=== PATIENT | female | born 1955 | race Caucasian/White ===

== ENCOUNTER 2020-08-20 14:10 | Emergency (ER) | payer MEDICARE, SELFPAY ==
--- NOTE | ~2020-08-20 | CT_ITS ---
EXAMINATION: CT ABDOMEN AND PELVIS WITH CONTRAST CLINICAL INFORMATION: diffuse abd pain, worse epigastrium, hx lap justin COMPARISON: None. TECHNIQUE: Multidetector volumetric imaging was performed from the superior aspect of the liver through the pubic symphysis following administration of 85 cc of Omnipaque intravenous contrast Sagittal and coronal reformatted images were obtained on the technologist workstation.. This CT examination was performed using dose optimization techniques as appropriate, variously including the following: *Automated exposure control *Adjustment of mA and/or kV according to patient size (this includes techniques or standardized protocols for targeted exams where dose is matched to indication/reason for exam; i.e. extremities or head) *Use of iterative reconstruction technique DLP: 411 mGy-cm FINDINGS: LUNG BASES: Bibasilar dependent atelectasis LIVER, GALLBLADDER, AND BILIARY TREE: There is a heterogeneous mass in segment 4 the liver with associated capsular retraction. This measures approximate 5.7 x 3.1 x 5.8 cm in size. Difficult to define further on this study and further evaluation this hepatic lesion would be needed. Gallbladder surgically absent PANCREAS: Unremarkable. SPLEEN: Unremarkable. ADRENAL GLANDS: Unremarkable. KIDNEYS AND URETERS: Right lower pole renal cyst. Otherwise the kidneys are normal in size, shape, and attenuation. No hydronephrosis, hydroureter, or calculi seen. No perinephric stranding. BLADDER: Unremarkable. GASTROINTESTINAL TRACT: Colon is decompressed. This limits evaluation for subtle colonic wall thickening but I do not appreciate any pericolonic inflammatory changes. Interestingly, there are 2 metallic foreign bodies seen in the right lower quadrant. These appear to be located in the proximal and distal aspect of the appendix which measures up to 1 cm in maximal diameter without significant periappendiceal inflammatory change at this time previously ingested foreign bodies contained within the appendix likely. ABDOMINAL WALL: No significant hernia is appreciated. LYMPHOVASCULAR STRUCTURES: Mild vascular calcification within the aorta iliac system. No bulky adenopathy PELVIC VISCERA: Presumably surgically absent OSSEOUS STRUCTURES: Unremarkable. CT/CT abdomen pelvis w con IMPRESSION: There is an ill-defined lesion which appears to be mostly in segment 4 but likely crossing into segment 8 of the liver measuring up to 5.8 cm in maximal diameter. There is a suggestion of some subtle capsular retraction associated with this lesion. Etiology is uncertain and further evaluation will be needed. 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 Further evaluation with dedicated liver MRI would be recommended. 2 small metallic foreign bodies are seen in the right lower quadrant and these appear to be contained within the appendix. No obvious periappendiceal inflammatory changes This critical result was discussed with Dr. Janet Chavez at 08/20/2020 8:13 PM and it was ascertained that the content and urgency of the report was understood at the time of direct communication.
[2020-08-20 14:16] VITALS: BP 183/97; PULSE 87; RESP 18; TEMP 36.1; O2SAT 100; BMI 22.8
[2020-08-20 14:34] LABS: MANUAL DIFF FLAG NO
[2020-08-20 14:35] LABS: Basophils Percent Auto 0.2 % (0-2); Eosinophils Absolute Auto 0.1 X10*3/uL (0.0-0.4); Eosinophils Percent Auto 0.5 % (0-4); Hematocrit 43.7 % (37-47); Hemoglobin 14.2 g/dl (12.0-16.0); Imm Gran Abs Auto 0.07 X10*3/uL (0.00-0.03); Imm Gran Pct Auto 0.5 % (0.0-0.4); Lymphocytes Absolute Auto 1.3 X10*3/uL (1.2-4.9); Lymphocytes Percent Auto 8.5 % (20-40); Mean Corpuscular HGB Conc 32.5 g/dl (31.0-35.0); Mean Corpuscular Hemoglobin 28.9 pg (27.0-33.0); Mean Platelet Volume 11.6 fL (9.4-12.3); Monocytes Absolute Auto 0.6 X10*3/uL (0.1-1.2); Monocytes Percent Auto 3.9 % (2-11); Neutrophils Absolute Auto 13.4 X10*3/uL (2.0-8.3); Neutrophils Percent Auto 86.4 % (45-73); Platelet Count 213 X10*3/uL (160-400); Red Blood Count 4.91 X10*6/uL (4.20-5.50); Red Cell Distribution Width 12.1 % (11.0-16.0); White Blood Count 15.5 X10*3/uL (4.8-10.8)
[2020-08-20 15:02] LABS: Alanine Aminotransferase 26 U/L (0-31); Albumin Level 4.5 g/dL (3.5-5.0); Alkaline Phosphatase 106 U/L (39-117); Anion Gap 11 (12-20); Aspartate Amino Transferase 35 U/L (5-31); Bilirubin Direct 0.2 mg/dL (0.0-0.5); Bilirubin Total 0.4 mg/dL (0.0-1.0); Blood Urea Nitrogen 17 mg/dL (9-16); Carbon Dioxide 31 mmol/L (22-29); Chloride 102 mmol/L (96-108); Creatinine Clr Calc Pharmacy 54.8; Estimated Glomerular Filt Rate > 60; Glucose Random 118 mg/dL (60-115); Lipase 35 U/L (8-78); Potassium 4.4 mmol/L (3.3-5.1); Sodium 140 mmol/L (135-145); Total Protein 7.5 g/dL (6.5-8.0)
[2020-08-20 17:16] VITALS: BP 146/77; PULSE 79; RESP 22; TEMP 37.2; O2SAT 100
--- NOTE | 2020-08-20 17:24 | ED.ABDPAIN ---
HPI - Abdominal Pain General Chief Complaint: Abdominal Pain Stated Complaint: abd pain Time Seen by Provider: 08/20/20 17:03 Source: patient Mode of arrival: ambulatory Limitations: no limitations History of Present Illness HPI narrative: Patient comes to emergency room complaining of diffuse abdominal pain, worse in the epigastric area. Patient states she drank orange juice this morning, then started having intense epigastric pain. Patient states that she has vomited 4 times since this morning, no diarrhea, no fever or chills. The pain has been constant, diffuse, gradually getting worse. Patient states that a few years ago she had an endoscopy and was told that she has a hiatal hernia, patient also has history cholecystectomy. MD elicited complaint: abdominal pain Related Data Previous Rx's Medication Instructions Recorded ondansetron HCl [Zofran] 4 mg PO Q6H PRN #14 tab 08/20/20 tramadol 50 mg PO TID PRN #14 tab 08/20/20 Allergies Allergy/AdvReac Type Severity Reaction Status Date / Time No Known Allergies Allergy Verified 08/20/20 14:20 Review of Systems Review of Systems Constitutional : No Weight loss, No Fever, No Chills, No Night Sweats, No Fatigue, No Malaise ENT/Mouth : No Hearing loss, No Ear Pain, No Nasal Congestion, No Sinus Pain, No Hoarseness, No sore throat, No Rhinorrhea, No Swallowing Difficulty Eyes: No Eye Pain, No Swelling, No Redness, No Foreign Body, No Discharge, No Vision Changes Cardiovascular : No Chest Pain, No SOB, No Dyspnea on Exertion, No Orthopnea, No Edema, No Palpitations Respiratory : No Cough, No Sputum, No Wheezing, No Smoke Exposure, No Dyspnea Gastrointestinal : Complaining of nausea and vomiting, No Diarrhea, No Constipation, complaining of diffuse abdominal pain, worse in the epigastric area, No Hematochezia, No Melena Genitourinary : no irregular bleeding, No Dysuria, No Urinary Frequency, No Hematuria, No Urinary Incontinence, No Urgency, No Flank Pain, No Urinary Flow Changes, No Hesitancy Musculoskeletal : No joint pain, No Myalgias, No Joint Swelling Skin : No Skin Lesions, No rash Neuro : No Weakness, No Numbness, No Paresthesias, No Loss of Consciousness, No Dizziness, No Headache Psych : No Anxiety/Panic, No Depression, No SI/HI/AH/VH, No Social Issues, Heme/Lymph: No Bruising, No Bleeding,No Lymphadenopathy Endocrine : No Polyuria, No Polydipsia, No Temperature Intolerance Physical Exam Vital Signs: Vital Signs: Last Vital Signs Temp 98.8 F 08/20/20 20:00 Pulse 82 08/20/20 20:00 Resp 16 08/20/20 20:00 BP 151/82 H 08/20/20 20:00 Pulse Ox 99 08/20/20 20:00 Body Mass Index 22.8 Appearance: Alert. Oriented X3. Patient looks uncomfortable Eyes: Pupils equal, round and reactive to light. ENT: Pharynx normal. Neck: Normal inspection. Neck supple. No lymph nodes noted. No crepitus CVS: Normal heart rate and rhythm. Pulses normal. Normal S1 and S2 Respiratory: No respiratory distress. Breath sounds normal. No Wheezing. No rales Abdomen: Soft , diffuse tenderness but seems to be more painful at the epigastric area No rigidity. No distention. Skin: Skin warm and dry. Normal skin color. Normal skin turgor. Extremities: No lower extremity edema. No lower extremity edema. No Lacerations. No Rash Neuro: Oriented X 3. No motor deficit. No sensory deficit. Moving all extermities. No slurred speech. Course Course Course Narrative: Patient's white blood cell count is 15.5. We do not have any previous labs to compare. I discussed the CT scan with the patient, patient states that she knows that she has hepatic hemangioma and has a follow-up appointment coming up in the next 2 weeks. Patient states she is visiting for [place] and is scheduled to return home in 3 days. I also discussed with the patient that there was is an incidental finding, patient has foreign body in the appendix which is not causing any pathology at this moment MDM - Abdominal Pain Lab Data Result diagrams: 08/20/20 14:29 08/20/20 14:29 Labs: Lab Results 08/20/20 08/20/20 Range/Units 14:29 14:29 WBC 15.5 H (4.8-10.8) X10*3/uL RBC 4.91 (4.20-5.50) X10*6/uL Hgb 14.2 (12.0-16.0) g/dl Hct 43.7 (37-47) % MCV 89.0 (80-98) fL MCH 28.9 (27.0-33.0) pg MCHC 32.5 (31.0-35.0) g/dl RDW 12.1 (11.0-16.0) % Plt Count 213 (160-400) X10*3/uL MPV 11.6 (9.4-12.3) fL Immature Gran % (Auto) 0.5 H (0.0-0.4) % Neut % (Auto) 86.4 H (45-73) % Lymph % (Auto) 8.5 L (20-40) % [place] % (Auto) 3.9 (2-11) % Eos % (Auto) 0.5 (0-4) % Baso % (Auto) 0.2 (0-2) % Lymph # (Auto) 1.3 (1.2-4.9) X10*3/uL [place] # (Auto) 0.6 (0.1-1.2) X10*3/uL Eos # (Auto) 0.1 (0.0-0.4) X10*3/uL Baso # (Auto) 0.0 (0.0-0.2) X10*3/uL Abs Immat Gran (auto) 0.07 H (0.00-0.03) X10*3/uL Absolute Neuts (auto) 13.4 H (2.0-8.3) X10*3/uL Absolute Nucleated RBC 0.000 (0.0-0.012) X10*3/uL Nucleated RBC % (auto) 0.0 (0.0-0.2) /100WBC Sodium 140 (135-145) mmol/L Potassium 4.4 (3.3-5.1) mmol/L Chloride 102 (96-108) mmol/L Carbon Dioxide 31 H (22-29) mmol/L Anion Gap 11 L (12-20) BUN 17 H (9-16) mg/dL Creatinine 0.83 (0.5-1.4) mg/dL Estim Creat Clear Calc 54.8 Estimated GFR > 60 Random Glucose 118 H (60-115) mg/dL Calcium 10.0 (8.4-10.2) mg/dL Total Bilirubin 0.4 (0.0-1.0) mg/dL Direct Bilirubin 0.2 (0.0-0.5) mg/dL AST 35 H (5-31) U/L ALT 26 (0-31) U/L Alkaline Phosphatase 106 (39-117) U/L Total Protein 7.5 (6.5-8.0) g/dL Albumin 4.5 (3.5-5.0) g/dL Lipase 35 (8-78) U/L Imaging Data CT abdomen and pelvis: Radiologist's impression: FINDINGS: LUNG BASES: Bibasilar dependent atelectasis LIVER, GALLBLADDER, AND BILIARY TREE: There is a heterogeneous mass in segment 4 the liver with associated capsular retraction. This measures approximate 5.7 x 3.1 x 5.8 cm in size. Difficult to define further on this study and further evaluation this hepatic lesion would be needed. Gallbladder surgically absent PANCREAS: Unremarkable. SPLEEN: Unremarkable. ADRENAL GLANDS: Unremarkable. KIDNEYS AND URETERS: Right lower pole renal cyst. Otherwise the kidneys are normal in size, shape, and attenuation. No hydronephrosis, hydroureter, or calculi seen. No perinephric stranding. BLADDER: Unremarkable. GASTROINTESTINAL TRACT: Colon is decompressed. This limits evaluation for subtle colonic wall thickening but I do not appreciate any pericolonic inflammatory changes. Interestingly, there are 2 metallic foreign bodies seen in the right lower quadrant. These appear to be located in the proximal and distal aspect of the appendix which measures up to 1 cm in maximal diameter without significant periappendiceal inflammatory change at this time previously ingested foreign bodies contained within the appendix likely. ABDOMINAL WALL: No significant hernia is appreciated. LYMPHOVASCULAR STRUCTURES: Mild vascular calcification within the aorta iliac system. No bulky adenopathy PELVIC VISCERA: Presumably surgically absent OSSEOUS STRUCTURES: Unremarkable. CT/CT abdomen pelvis w con IMPRESSION: There is an ill-defined lesion which appears to be mostly in segment 4 but likely crossing into segment 8 of the liver measuring up to 5.8 cm in maximal diameter. There is a suggestion of some subtle capsular retraction associated with this lesion. Etiology is uncertain and further evaluation will be needed. 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 Further evaluation with dedicated liver MRI would be recommended. 2 small metallic foreign bodies are seen in the right lower quadrant and these appear to be contained within the appendix. No obvious periappendiceal inflammatory changes Discharge Plan Discharge Clinical Impression: Abdominal pain Qualifiers: Abdominal location: epigastric Qualified Code(s): R10.13 - Epigastric pain Patient Disposition: Home, Self-Care Instructions: Abdominal Pain (ED) Additional Instructions: Please follow-up with your primary care physician tomorrow. If you have any worsening or new symptoms, please return to the emergency room or call 911 Prescriptions: New ondansetron HCl [Zofran] 4 mg tablet 4 mg PO Q6H PRN (Reason: nausea and vomiting) Qty: 14 RF: 0 tramadol 50 mg tablet 50 mg PO TID PRN (Reason: pain) Qty: 14 RF: 0 PMFSH Past Medical History Medical History Cholecystectomy planned Cholecystitis Fibromyalgia Gastritis HLD (hyperlipidemia) HTN (hypertension) Social History Social History Alcohol intake: never Smoking Status: Never smoker Use of substances other than those prescribed or required for medical reasons: No Advance Directives: No Advance Directives Information Provided: Yes
[2020-08-20] MEDS: ondansetron HCL 4 MG/2 ML VIAL IVPUSH (17:44)
[2020-08-20] MEDS: Morphine Sulfate 4 MG/ML CARTRIDGE IVPUSH (17:44)
[2020-08-20] MEDS: 0.9 % Sodium Chloride 1,000 ML 999 ML IVCONT (17:45)
[2020-08-20 17:54] VITALS: BP 158/68; PULSE 78; RESP 16; TEMP 37.2; O2SAT 99
--- NOTE | 2020-08-20 17:57 | PC.NURSE ---
Pt alert, oriented, c/o epigastric pain and nausea starting this morning and has gotten worse throughout the day, took pepcid prior to arrival with no relief. Abd soft, tender to touch, BS + x4 IV established, meds administered as documented, fluids hung. Pt awaiting CT, daughter at bedside.
[2020-08-20] MEDS: iohexoL 350 MG/ML 100 ML INFUS..BTL IV (19:40)
[2020-08-20 20:00] VITALS: BP 151/82; PULSE 82; RESP 16; TEMP 37.1; O2SAT 99
[2020-08-20 21:05] VITALS: RESP 18
[2020-08-20] MEDS: Magnesium Hydrox/Alum Hydrox 30 ML ORAL.SUSP PO (21:05)
[2020-08-20] MEDS: Lidocaine HCl Viscous 2 % 15 ML SOLUTION MUCOUS MEM (21:05)
[2020-08-20] MEDS: Morphine Sulfate 2 MG/ML CARTRIDGE IVPUSH (21:05)
== END 2020-08-20 21:54 | disposition home or self-care (01) ==
PROVIDERS: Emergency Provider Emergency Medicine
DX: R10.13 Epigastric pain (principal); Z79.899 Other long term (current) drug therapy
CPT/HCPCS: 36415; 74177; 80048; 80076; 83690; 85025; 96365; 96375; 99284; J2270; J2405; Q9967

== ENCOUNTER 2020-08-21 12:42 | Emergency (ER) | payer MEDICARE, SELFPAY ==
--- NOTE | 2020-08-21 | ECG_ITS ---
Test Reason : ABD PAIN Blood Pressure : / mmHG Vent. Rate : 079 BPM Atrial Rate : 079 BPM P-R Int : 122 ms QRS Dur : 070 ms QT Int : 376 ms P-R-T Axes : 063 042 042 degrees QTc Int : 431 ms Normal sinus rhythm Normal ECG No previous ECGs available Referred By: Generic ED Physician Electronically Signed By:BEATA NGUYEN MD
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
[2020-08-21 12:51] VITALS: BP 113/64; PULSE 82; RESP 18; O2SAT 98; BMI 23.8
[2020-08-21 14:00] VITALS: BP 148/74; PULSE 72; RESP 18; O2SAT 98
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
[2020-08-21] MEDS: Sodium Phosphate,Mono-Dibasic 133 ML ENEMA PR (14:29)
[2020-08-21 14:48] LABS: Basophils Percent Auto 0.1 % (0-2); Hematocrit 43.4 % (37-47); Imm Gran Abs Auto 0.08 X10*3/uL (0.00-0.03); Imm Gran Pct Auto 0.4 % (0.0-0.4); Lymphocytes Absolute Auto 0.5 X10*3/uL (1.2-4.9); Lymphocytes Percent Auto 2.6 % (20-40); MANUAL DIFF FLAG SCAN; Mean Corpuscular HGB Conc 32.3 g/dl (31.0-35.0); Mean Corpuscular Hemoglobin 28.7 pg (27.0-33.0); Mean Corpuscular Volume 88.9 fL (80-98); Mean Platelet Volume 11.4 fL (9.4-12.3); Monocytes Absolute Auto 0.6 X10*3/uL (0.1-1.2); Monocytes Percent Auto 3.3 % (2-11); Neutrophils Absolute Auto 17.6 X10*3/uL (2.0-8.3); Neutrophils Percent Auto 93.6 % (45-73); Platelet Count 189 X10*3/uL (160-400); Red Blood Count 4.88 X10*6/uL (4.20-5.50); Red Cell Distribution Width 12.1 % (11.0-16.0); SCAN SMEAR FLAG 1; White Blood Count 18.8 X10*3/uL (4.8-10.8)
[2020-08-21 15:09] LABS: Anion Gap 14 (12-20); Blood Urea Nitrogen 14 mg/dL (9-16); Calcium 9.3 mg/dL (8.4-10.2); Carbon Dioxide 29 mmol/L (22-29); Chloride 100 mmol/L (96-108); Creatinine Clr Calc Pharmacy 56.2; Estimated Glomerular Filt Rate > 60; Glucose Random 136 mg/dL (60-115); Potassium 3.7 mmol/L (3.3-5.1); Sodium 139 mmol/L (135-145)
--- NOTE | 2020-08-21 15:17 | PC.NURSE ---
Pt states she is unable to have BM, reports RLQ abd pain. Provider aware
[2020-08-21 15:34] LABS: Influenza A PCR NEGATIVE (Negative); Influenza B PCR NEGATIVE (Negative); Resp Syncy Virus RNA Qual PCR NEGATIVE (Negative); SARS COV2 PCR INHOUSE NEGATIVE (Negative)
[2020-08-21 15:40] LABS: SLIDE REVIEW VERIFIED
[2020-08-21] MEDS: Magnesium Citrate 300 ML SOLUTION PO (17:04)
== END 2020-08-21 17:08 | disposition home or self-care (01) ==
PROVIDERS: Nurse Practitioner Family; Emergency Provider Emergency Medicine Emergency Medical Services
DX: K59.00 Constipation, unspecified (principal); R10.30 Lower abdominal pain, unspecified; Z20.822 Contact with and (suspected) exposure to COVID-19; I10 Essential (primary) hypertension; E78.5 Hyperlipidemia, unspecified; Z90.49 Acquired absence of other specified parts of digestive tract
CPT/HCPCS: 0241U; 36415; 74018; 80048; 85025; 93005; 99284; 99285